=== PATIENT | male | born 1960 | race Caucasian/White ===

== ENCOUNTER 2017-05-06 10:04 | Emergency (ER) | payer SELFPAY ==
[~2017-05-06] VITALS: Ht 175.3 cm; Wt 73.4 kg
[2017-05-06 10:04] VITALS: BP 145/77
--- NOTE | 2017-05-06 10:55 | REP ---
Clinical: Trauma. Technique: AP, lateral, bilateral oblique views of the left fifth digit. Findings: Dislocation at the distal interphalangeal joint is appreciated without obvious acute fracture. 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 Impression: Acute dislocation at the fifth DIP joint. Signed by Marcellus Snell MD 05/06/2017 10:46 A
== END 2017-05-06 11:07 | disposition home or self-care (01) ==
LOC: M ED 10:04
DX: S63.297A Dislocation of distal interphalangeal joint of left little finger, initial encounter (principal); W23.1XXA Caught, crushed, jammed, or pinched between stationary objects, initial encounter; Y92.099 Unspecified place in other non-institutional residence as the place of occurrence of the external cause; Y93.89 Activity, other specified; Y99.9 Unspecified external cause status

== ENCOUNTER → 2020-06-15 | Outpatient (CLI) | payer SELFPAY | LOC: M LABSMTC 13:13 | PROVIDERS: ATTEND Pediatrics | DX: Z20.828 Contact with and (suspected) exposure to other viral communicable diseases (principal) | CPT/HCPCS: C9803; U0003 ==

== ENCOUNTER → 2021-10-06 | Outpatient (REF) | LOC: M LABSMTC 09:51 | PROVIDERS: ATTEND Family Medicine | DX: Z20.822 Contact with and (suspected) exposure to COVID-19 (principal) ==

== ENCOUNTER → 2021-10-09 | Outpatient (REF) | LOC: M LABSMTC 09:54 | PROVIDERS: ATTEND Family Medicine | DX: Z11.52 Encounter for screening for COVID-19 (principal); Z20.822 Contact with and (suspected) exposure to COVID-19 ==